=== PATIENT | female | born 1940 | race Caucasian/White ===

== ENCOUNTER 2016-08-09 22:34 | Inpatient (IN) | payer OTHER ==
[~2016-08-09] VITALS: Ht 162.6 cm; Wt 69.7 kg
[~2016-08-09 22:34] MED LIST: CLONIDINE HCL0.3 MG PO; COZAAR100 MG PO; METOPROLOL SUC100 MG PO; NIFEDIPINE ER60 MG PO; SIMVASTATIN40 M1 PO; UNABLEOBTAIN
[2016-08-09 23:13] LABS: BASOPHIL COUNT 0.1 K/uL (0-0.1); EOSINOPHIL (%) 2.4 % (0-5); EOSINOPHIL COUNT 0.3 K/uL (0-0.3); HEMATOCRIT 41.9 % (36.0-46.0); IMMATURE GRANULOCYTE (%) 0.2 % (0.0-0.7); IMMATURE GRANULOCYTE COUNT 0.3 K/uL; MCH 28.1 PG (29.0-34.0); MCHC 33.4 G/DL (30.0-36.0); MEAN PLAT.VOLUME 10.9 uM^3 (9.5-12.4); MONOCYTE COUNT 1.1 K/uL (0-0.8); NEUTROPHIL (%) 53.1 % (45-76); NEUTROPHIL COUNT 7.3 K/uL (1.8-6.4); PLATELET COUNT 357 K/uL (156-360); RBC DIS.WIDTH-CV 13.4 % (11.8-14.6); RBC DIS.WIDTH-SD 40.2 % (39-53); RED BLOOD COUNT 4.99 M/uL (3.80-5.20); WHITE BLOOD COUNT 13.8 K/uL (4.1-10.2)
[2016-08-09 23:22] LABS: CHLORIDE 105 mEq/L (99-109); POTASSIUM 3.8 mEq/L (3.7-5.4); SODIUM 139 mEq/L (136-147)
[2016-08-09 23:24] LABS: PROTHROMBIN TIME 10.3 (9.2-11.2); PTT 28.6 (25-32)
[2016-08-09 23:24] LABS: GLUCOSE 109 mg/dL (70-99)
[2016-08-09 23:25] LABS: ANION GAP 11 MEQ/L (2-14)
[2016-08-09 23:28] LABS: GFR ESTIMATE (CALCULATED) 52 mL/min/; UREA NITROGEN (BUN) 20 mg/dL (9-23)
[2016-08-09 23:34] LABS: TROP-I INTERPRETATION NEGATIVE; TROPONIN-I 0.13 ng/mL (0.0-0.30)
[2016-08-09] MEDS ORDERED: SIMVASTATIN40 MG PO (23:56)
[2016-08-09] MEDS ORDERED: NIFEDIPINE ER90 MG PO (23:57)
[2016-08-09] MEDS ORDERED: LO-DOSE ASPIRIN81 M2 PO (23:57)
[2016-08-09] MEDS ORDERED: CYANOCOBALAM1000 MCG PO (23:58)
[2016-08-09] MEDS ORDERED: VITAMIN D31000 UNIT PO (23:58)
[2016-08-10] VITALS (7 sets, daily range): BP systolic 99–152; BP diastolic 63–92
[2016-08-10 07:03] LABS: HEMATOCRIT 36.4 % (36.0-46.0); MCH 28.3 PG (29.0-34.0); MCHC 33.2 G/DL (30.0-36.0); MCV 85.2 FL (83-99); MEAN PLAT.VOLUME 11.4 uM^3 (9.5-12.4); PLATELET COUNT 296 K/uL (156-360); RBC DIS.WIDTH-CV 13.6 % (11.8-14.6); RBC DIS.WIDTH-SD 41.7 % (39-53); RED BLOOD COUNT 4.27 M/uL (3.80-5.20); WHITE BLOOD COUNT 11.1 K/uL (4.1-10.2)
[2016-08-10 08:04] LABS: TROP-I INTERPRETATION NEGATIVE; TROPONIN-I 0.11 ng/mL (0.0-0.30)
[2016-08-10 08:58] LABS: ADD MIUA? YES; BILIRUBIN NEGATIVE; BLOOD NEGATIVE; COLOR STRAW ((YELLOW)); GLUCOSE (STRIP) NEGATIVE; KETONES NEGATIVE; LEUKOCYTES SMALL; NITRITE NEGATIVE; PROTEIN (STRIP) NEGATIVE; SPECIFIC GRAVITY 1.008 (1.000-1.030); UROBILINOGEN 0.2 MG/DL (0.2-1.0)
[2016-08-10 09:47] LABS: BACTERIA NONE SEEN /HPF; EPITHELIAL CELLS RARE /HPF; MUCUS NONE SEEN /LPF; RED BLOOD CELLS 0-5 /HPF (0-5); UCUL ADDED? NO
[2016-08-10 12:41] LABS: TROP-I INTERPRETATION NEGATIVE; TROPONIN-I 0.09 ng/mL (0.0-0.30)
[2016-08-10 19:01] LABS: INTER. NORMALIZED RATIO 1.1; PROTHROMBIN TIME 10.7 (9.2-11.2)
[2016-08-10 19:03] LABS: PTT 58.5 (25-32)
[2016-08-11 04:00] VITALS: BP 110/74
[2016-08-11 05:30] VITALS: BP 110/69
[2016-08-11 06:23] LABS: HEMATOCRIT 39.3 % (36.0-46.0); MCHC 33.6 G/DL (30.0-36.0); MCV 86.4 FL (83-99); MEAN PLAT.VOLUME 11.4 uM^3 (9.5-12.4); PLATELET COUNT 315 K/uL (156-360); RBC DIS.WIDTH-CV 13.7 % (11.8-14.6); RBC DIS.WIDTH-SD 42.8 % (39-53); RED BLOOD COUNT 4.55 M/uL (3.80-5.20); WHITE BLOOD COUNT 9.2 K/uL (4.1-10.2)
[2016-08-11 06:53] LABS: ALKALINE PHOSPHATASE 80 IU/L (3-129); ANION GAP 11 MEQ/L (2-14); CHLORIDE 103 MEQ/L (99-109); GFR ESTIMATE (CALCULATED) 52 mL/min/; GLUCOSE 96 mg/dL (70-99); SAMPLE HEMOLYSIS CHECK 0; SAMPLE ICTERIC CHECK 0; SAMPLE LIPEMIA CHECK 0; SODIUM 140 MEQ/L (136-147); TOTAL BILIRUBIN 1.3 MG/DL (0.0-1.0); UREA NITROGEN (BUN) 22 mg/dL (9-23)
[2016-08-11 07:00] LABS: POTASSIUM 4.6 MEQ/L (3.7-5.4)
[2016-08-11 07:56] LABS: POINT-OF-CARE METER ID UU14174216
[2016-08-11 08:00] VITALS: BP 100/65
[2016-08-11 12:45] VITALS: BP 129/80
[2016-08-11 16:00] VITALS: BP 113/79
[2016-08-11 21:45] VITALS: BP 110/77
[2016-08-12] VITALS (8 sets, daily range): BP systolic 123–160; BP diastolic 78–99
[2016-08-13 05:25] VITALS: BP 139/95
[2016-08-13 06:56] LABS: HEMATOCRIT 39.4 % (36.0-46.0); MCHC 33.8 G/DL (30.0-36.0); MCV 85.8 FL (83-99); MEAN PLAT.VOLUME 11.3 uM^3 (9.5-12.4); PLATELET COUNT 333 K/uL (156-360); RBC DIS.WIDTH-CV 13.7 % (11.8-14.6); RBC DIS.WIDTH-SD 42.5 % (39-53); RED BLOOD COUNT 4.59 M/uL (3.80-5.20); WHITE BLOOD COUNT 10.7 K/uL (4.1-10.2)
[2016-08-13 07:33] LABS: ANION GAP 8 MEQ/L (2-14); CHLORIDE 107 MEQ/L (99-109); GFR ESTIMATE (CALCULATED) > 59 mL/min/; GLUCOSE 100 mg/dL (70-99); POTASSIUM 4.2 MEQ/L (3.7-5.4); SAMPLE HEMOLYSIS CHECK 0; SAMPLE ICTERIC CHECK 0; SAMPLE LIPEMIA CHECK 0; SODIUM 141 MEQ/L (136-147); UREA NITROGEN (BUN) 14 mg/dL (9-23)
[2016-08-13 07:47] VITALS: BP 151/91
[2016-08-13 12:06] VITALS: BP 131/75
[2016-08-13 16:00] VITALS: BP 189/115
[2016-08-13 19:22] VITALS: BP 150/86
[2016-08-13 23:17] VITALS: BP 134/92
[2016-08-14 03:25] VITALS: BP 135/90
[2016-08-14 08:04] VITALS: BP 135/70
[2016-08-14 11:34] VITALS: BP 143/90
[2016-08-14 15:03] VITALS: BP 163/84
[2016-08-14 19:25] VITALS: BP 122/93
[2016-08-15] VITALS (7 sets, daily range): BP systolic 135–176; BP diastolic 84–97
[2016-08-15 06:58] LABS: EOSINOPHIL (%) 2.7 % (0-5); EOSINOPHIL COUNT 0.3 K/uL (0-0.3); HEMATOCRIT 41.6 % (36.0-46.0); IMMATURE GRANULOCYTE (%) 0.2 % (0.0-0.7); LYMPHOCYTE COUNT 3.3 K/uL (1.0-2.8); MCHC 34.1 G/DL (30.0-36.0); MCV 85.1 FL (83-99); MEAN PLAT.VOLUME 11.2 uM^3 (9.5-12.4); MONOCYTE (%) 8.4 % (3-12); MONOCYTE COUNT 0.9 K/uL (0-0.8); NEUTROPHIL (%) 59.2 % (45-76); NEUTROPHIL COUNT 6.7 K/uL (1.8-6.4); PLATELET COUNT 355 K/uL (156-360); RBC DIS.WIDTH-CV 13.6 % (11.8-14.6); RBC DIS.WIDTH-SD 41.2 % (39-53); RED BLOOD COUNT 4.89 M/uL (3.80-5.20); WHITE BLOOD COUNT 11.2 K/uL (4.1-10.2)
[2016-08-15 07:26] LABS: ANION GAP 9 MEQ/L (2-14); CHLORIDE 105 MEQ/L (99-109); GFR ESTIMATE (CALCULATED) > 59 mL/min/; GLUCOSE 117 mg/dL (70-99); POTASSIUM 4.3 MEQ/L (3.7-5.4); SAMPLE HEMOLYSIS CHECK 0; SAMPLE ICTERIC CHECK 0; SAMPLE LIPEMIA CHECK 0; SODIUM 139 MEQ/L (136-147); UREA NITROGEN (BUN) 12 mg/dL (9-23)
[2016-08-16 03:20] VITALS: BP 154/90
[2016-08-16 06:14] LABS: BASOPHIL COUNT 0.1 K/uL (0-0.1); EOSINOPHIL (%) 2.9 % (0-5); EOSINOPHIL COUNT 0.3 K/uL (0-0.3); HEMATOCRIT 41.9 % (36.0-46.0); IMMATURE GRANULOCYTE (%) 0.2 % (0.0-0.7); LYMPHOCYTE COUNT 3.6 K/uL (1.0-2.8); MCH 29.3 PG (29.0-34.0); MCHC 34.4 G/DL (30.0-36.0); MCV 85.3 FL (83-99); MEAN PLAT.VOLUME 11.1 uM^3 (9.5-12.4); MONOCYTE COUNT 0.9 K/uL (0-0.8); NEUTROPHIL COUNT 5.3 K/uL (1.8-6.4); PLATELET COUNT 364 K/uL (156-360); RBC DIS.WIDTH-CV 13.6 % (11.8-14.6); RBC DIS.WIDTH-SD 41.8 % (39-53); RED BLOOD COUNT 4.91 M/uL (3.80-5.20); WHITE BLOOD COUNT 10.2 K/uL (4.1-10.2)
[2016-08-16 06:40] LABS: ANION GAP 7 MEQ/L (2-14); CHLORIDE 105 MEQ/L (99-109); GFR ESTIMATE (CALCULATED) 58 mL/min/; GLUCOSE 112 mg/dL (70-99); POTASSIUM 4.5 MEQ/L (3.7-5.4); SAMPLE HEMOLYSIS CHECK 0; SAMPLE ICTERIC CHECK 0; SAMPLE LIPEMIA CHECK 0; SODIUM 139 MEQ/L (136-147); UREA NITROGEN (BUN) 12 mg/dL (9-23)
[2016-08-16 07:12] VITALS: BP 140/97
[2016-08-16 12:45] VITALS: BP 150/100
[2016-08-16] MEDS ORDERED: ELIQUIS5 MG PO (13:31)
[2016-08-16] MEDS ORDERED: DIGOXIN250 MCG PO (13:32)
[2016-08-16] MEDS ORDERED: LOPRESSOR100 M1 PO (13:32)
[2016-08-16] MEDS ORDERED: LISINOPRIL20 MG PO (13:33)
[2016-08-16] MEDS ORDERED: CARDIZEM60 MG PO (13:33)
[2016-08-16 15:38] VITALS: BP 164/98
== END 2016-08-16 16:25 | disposition home or self-care (01) | DRG 310 ==
LOC: EME 22:34 → EDOF 08-10 01:05 → 4EAST 08-10 01:05
PROVIDERS: Emergency Medicine; Hospitalist; Internal Medicine
DX: I48.1 Persistent atrial fibrillation (principal); I10 Essential (primary) hypertension; E78.5 Hyperlipidemia, unspecified; Z79.82 Long term (current) use of aspirin
CPT/HCPCS: 71010; 80048; 80053; 81003; 82948; 83880; 84439; 84443; 84484; 85025; 85027; 85610; 85730; 93005; 93306; 99281; 99285; G0378; J1940; J7040

== ENCOUNTER 2016-10-05 12:25 | Inpatient (IN) | payer OTHER ==
[~2016-10-05] VITALS: Ht 161.3 cm; Wt 67.5 kg
[~2016-10-05 12:25] MED LIST changes: +CARDIZEM60 MG PO; +CYANOCOBALAM1000 MCG PO; +DIGOXIN250 MCG PO; +ELIQUIS5 MG PO; +LISINOPRIL20 MG PO; +LO-DOSE ASPIRIN81 M2 PO; +LOPRESSOR100 M1 PO; +NIFEDIPINE ER90 MG PO; +SIMVASTATIN40 MG PO; +VITAMIN D31000 UNIT PO
[2016-10-05 13:29] LABS: HEMATOCRIT 42.1 % (36.0-46.0); MCH 27.8 PG (29.0-34.0); MCHC 31.6 G/DL (30.0-36.0); MCV 88.1 FL (83-99); MEAN PLAT.VOLUME 10.6 uM^3 (9.5-12.4); PLATELET COUNT 389 K/uL (156-360); RBC DIS.WIDTH-CV 13.2 % (11.8-14.6); RBC DIS.WIDTH-SD 42.7 % (39-53); RED BLOOD COUNT 4.78 M/uL (3.80-5.20); WHITE BLOOD COUNT 8.8 K/uL (4.1-10.2)
[2016-10-05 13:39] LABS: CHLORIDE 104 mEq/L (99-109); POTASSIUM 4.1 mEq/L (3.7-5.4); SODIUM 139 mEq/L (136-147)
[2016-10-05 13:41] LABS: GLUCOSE 104 mg/dL (70-99)
[2016-10-05 13:45] LABS: ANION GAP 10 MEQ/L (2-14); GFR ESTIMATE (CALCULATED) > 59 mL/min/
[2016-10-05 13:46] LABS: UREA NITROGEN (BUN) 14 mg/dL (9-23)
[2016-10-05 13:49] LABS: TROP-I INTERPRETATION NEGATIVE; TROPONIN-I < 0.01 ng/mL (0.0-0.30)
[2016-10-05 15:33] LABS: D-DIMER ELISA 0.42 mg/L FEU (< 0.57)
[2016-10-05] MEDS ORDERED: CARDIZEM CD360 MG PO (17:06)
[2016-10-05] MEDS ORDERED: METOPROLOL TAR100 MG PO (17:08)
[2016-10-05 20:11] LABS: TROP-I INTERPRETATION NEGATIVE; TROPONIN-I < 0.01 ng/mL (0.0-0.30)
[2016-10-05 20:20] VITALS: BP 172/102
[2016-10-05 23:20] VITALS: BP 102/64
[2016-10-06 01:28] LABS: TROP-I INTERPRETATION NEGATIVE; TROPONIN-I < 0.01 ng/mL (0.0-0.30)
[2016-10-06 03:00] VITALS: BP 103/75
[2016-10-06 07:48] VITALS: BP 119/70
[2016-10-06 12:04] VITALS: BP 123/74
[2016-10-06 15:04] VITALS: BP 126/85
[2016-10-06 20:03] VITALS: BP 129/82
[2016-10-06 23:36] VITALS: BP 119/82
[2016-10-07 04:04] VITALS: BP 137/88
[2016-10-07 05:54] LABS: HEMATOCRIT 41.7 % (36.0-46.0); MCH 27.5 PG (29.0-34.0); MCHC 32.1 G/DL (30.0-36.0); MCV 85.5 FL (83-99); MEAN PLAT.VOLUME 10.9 uM^3 (9.5-12.4); PLATELET COUNT 356 K/uL (156-360); RBC DIS.WIDTH-CV 13.2 % (11.8-14.6); RED BLOOD COUNT 4.88 M/uL (3.80-5.20); WHITE BLOOD COUNT 9.5 K/uL (4.1-10.2)
[2016-10-07 06:19] LABS: ANION GAP 12 MEQ/L (2-14); CHLORIDE 99 MEQ/L (99-109); GFR ESTIMATE (CALCULATED) 58 mL/min/; GLUCOSE 103 mg/dL (70-99); SAMPLE HEMOLYSIS CHECK 0; SAMPLE ICTERIC CHECK 0; SAMPLE LIPEMIA CHECK 0; SODIUM 139 MEQ/L (136-147); UREA NITROGEN (BUN) 20 mg/dL (9-23)
[2016-10-07 06:20] LABS: POTASSIUM 3.2 MEQ/L (3.7-5.4)
[2016-10-07 08:56] VITALS: BP 143/99
[2016-10-07 11:12] VITALS: BP 119/87
[2016-10-07 15:10] VITALS: BP 106/67
[2016-10-07 17:32] VITALS: BP 114/78
[2016-10-07 19:45] VITALS: BP 125/89
[2016-10-08 00:05] VITALS: BP 120/76
[2016-10-08 04:10] VITALS: BP 130/80
[2016-10-08 06:28] LABS: HEMATOCRIT 43.4 % (36.0-46.0); MCH 27.7 PG (29.0-34.0); MCHC 32.3 G/DL (30.0-36.0); MCV 85.8 FL (83-99); MEAN PLAT.VOLUME 10.4 uM^3 (9.5-12.4); PLATELET COUNT 397 K/uL (156-360); RBC DIS.WIDTH-CV 13.2 % (11.8-14.6); RBC DIS.WIDTH-SD 41.1 % (39-53); RED BLOOD COUNT 5.06 M/uL (3.80-5.20)
[2016-10-08 06:52] LABS: ANION GAP 7 MEQ/L (2-14); CHLORIDE 101 MEQ/L (99-109); GFR ESTIMATE (CALCULATED) > 59 mL/min/; GLUCOSE 88 mg/dL (70-99); SAMPLE HEMOLYSIS CHECK 0; SAMPLE ICTERIC CHECK 0; SAMPLE LIPEMIA CHECK 0; SODIUM 136 MEQ/L (136-147); UREA NITROGEN (BUN) 17 mg/dL (9-23)
[2016-10-08 07:00] LABS: POTASSIUM 4.5 MEQ/L (3.7-5.4)
[2016-10-08 07:35] VITALS: BP 134/85
[2016-10-08] MEDS ORDERED: FUROSEMIDE20 MG PO (08:27)
[2016-10-08] MEDS ORDERED: CARDIZEM CD,CA240 MG PO (08:27)
[2016-10-08] MEDS ORDERED: DIGOXIN250 MCG PO (08:27)
== END 2016-10-08 12:00 | disposition home or self-care (01) | DRG 293 ==
LOC: EME 12:25 → 4EAST 18:10 → EDOF 18:10 → 4EAST 20:12
PROVIDERS: Emergency Medicine; Hospitalist; Nurse Practitioner Family
DX: I11.0 Hypertensive heart disease with heart failure (principal); I27.2 Other secondary pulmonary hypertension; I48.2 Chronic atrial fibrillation; I50.31 Acute diastolic (congestive) heart failure; E78.5 Hyperlipidemia, unspecified; E87.6 Hypokalemia; I07.1 Rheumatic tricuspid insufficiency; Z79.01 Long term (current) use of anticoagulants
CPT/HCPCS: 71010; 71020; 80048; 83880; 84484; 85025; 85027; 85379; 93005; 99281; 99285; J1940

== ENCOUNTER 2017-01-08 11:34 | Emergency (ER) | payer OTHER ==
[~2017-01-08] VITALS: Ht 157.5 cm; Wt 66.2 kg
[~2017-01-08 11:34] MED LIST changes: +CARDIZEM CD,CA240 MG PO; +CARDIZEM CD360 MG PO; +FUROSEMIDE20 MG PO; +METOPROLOL TAR100 MG PO
[2017-01-08 13:16] VITALS: BP 163/94
== END 2017-01-08 13:18 | disposition home or self-care (01) ==
LOC: EME 11:34 → EXP 11:34
DX: S92.911A Unspecified fracture of right toe(s), initial encounter for closed fracture (principal); V01.00XA Pedestrian on foot injured in collision with pedal cycle in nontraffic accident, initial encounter; I48.91 Unspecified atrial fibrillation
CPT/HCPCS: 73610; 73630; 99281; 99284